=== PATIENT | female | born 1985 | race Asian ===

== ENCOUNTER 2023-05-16 17:34 | Emergency (ER) | payer OTHER ==
[2023-05-16 17:55] VITALS: BP 107/45; PULSE 107; RESP 16; TEMP 98.6; BMI 24.1
== END 2023-05-16 19:18 | disposition home or self-care (01) ==
LOC: FER 17:34
DX: M79.671 Pain in right foot (principal); S93.401A Sprain of unspecified ligament of right ankle, initial encounter; X58.XXXA Exposure to other specified factors, initial encounter
CPT/HCPCS: 73610-TC-RT-FY; 73630-TC-RT-FY; 99283-25